=== PATIENT | male | born 2000 | race Hispanic/Latino ===

== ENCOUNTER 2018-10-29 23:14 | Emergency (ER) | payer SELFPAY ==
[~2018-10-29] VITALS: Ht 188 cm; Wt 122.5 kg
--- NOTE | 2018-10-30 01:03 | Diagnostic Imaging Report ---
LEFT KNEE - 3 Images HISTORY: Left knee pain, heard a pop, status post injury COMPARISON: None available. FINDINGS: Bones: No acute displaced fracture. Subtle deep sulcus sign at the anterior aspect of the lateral femoral condyle. No aggressive osseous lesion. Joints: Osseous alignment is within normal limits and the joint spaces are well-maintained. Trace nonspecific effusion. Soft tissues: The soft tissues appear unremarkable. IMPRESSION: Findings suspicious for an anterior cruciate ligament injury. Recommend a follow-up nonemergent MRI of the knee without contrast for further evaluation. Signed by: Dr. Norman Garza D.O., M.M.M. on 10/30/2018 12:59 AM
== END 2018-10-30 01:55 | disposition home or self-care (01) ==
LOC: ER 23:14
DX: S83.512A Sprain of anterior cruciate ligament of left knee, initial encounter (principal); X50.1XXA Overexertion from prolonged static or awkward postures, initial encounter; Y92.488 Other paved roadways as the place of occurrence of the external cause
CPT/HCPCS: 99283